=== PATIENT | female | born 1980 | race Caucasian/White ===

== ENCOUNTER 2016-05-08 09:41 | Observation (INO) | payer OTHER ==
[2016-05-02 15:47] LABS: BASOPHILS % (AUTO) 0.3 % (0.0-2.0); EOSINOPHILS % (AUTO) 0.9 % (1.0-6.0); HEMATOCRIT 41.8 % (36-46); HEMOGLOBIN 14.1 g/dL (12.0-16.0); LYMPHOCYTES # (AUTO) 1.3 K/uL (1.0-4.8); LYMPHOCYTES % (AUTO) 21.8 % (22.0-44.0); MEAN CORPUSCULAR HGB CONC 33.8 G/dL (31.0-37.0); MEAN CORPUSCULAR VOLUME 89 fL (80-100); MONOCYTES # (AUTO) 0.6 K/uL (0.1-1.0); MONOCYTES % (AUTO) 10.7 % (2.0-9.0); NEUTROPHILS # (AUTO) 3.8 K/uL (1.8-7.7); NEUTROPHILS % (AUTO) 66.3 % (40.0-70.0); PLATELET COUNT (AUTO) 177 K/uL (150-450); RED BLOOD CELL COUNT(AUTO) 4.72 MIL/uL (4.00-5.20); RED CELL DISTRIBUTION WIDTH 12.7 % (11.5-14.5); WHITE BLOOD COUNT (AUTO) 5.8 K/uL (4.5-11.0)
[2016-05-02 15:49] LABS: ANION GAP 5 mmol/L (8-16); CALCIUM, TOTAL 9.3 mg/dL (8.8-10.5); CARBON DIOXIDE 32 mmol/L (22-29); CHLORIDE 100 mmol/L (98-107); CREATININE 0.84 mg/dL (0.60-1.30); GLOMERULAR FILTR. RATE CALC > 60 mL/min (>60); POTASSIUM 4.2 mmol/L (3.5-5.1); SODIUM SERUM 137 mmol/L (136-145); UREA NITROGEN, BLOOD 12 mg/dL (7-18)
[2016-05-02 15:56] LABS: ALANINE AMINOTRANSFERASE 28 U/L (12-78); ALBUMIN 3.8 g/dL (3.4-5.0); ASPARTATE AMINOTRANSFERASE 18 U/L (15-37); BILIRUBIN,TOTAL 0.6 mg/dL (0.1-1.0); TOTAL PROTEIN, SERUM 7.3 g/dL (6.4-8.2)
[2016-05-02 16:10] LABS: PROTHROMBIN TIME 10.6 SEC (9.4-11.6)
[~2016-05-08] VITALS: Ht 167.6 cm; Wt 62.7 kg
[~2016-05-08 09:41] MED LIST: CeFAZolin 2 GM/DEXTROSE 50 ML IV ONE; DEXAMETHASONE SOD PHOS 4 MG/ML VIAL IVP ONE; FentaNYL CITRATE-PF 100 MCG/2 ML VIAL IVP ONE; LIDOCAINE HCL/PF 2% 5 ML VIAL IM ONE; MIDAZOLAM HCL 2 MG/2 ML VIAL IVP ONE; ONDANSETRON HCL 4 MG/2 ML VIAL IVP ONE; PROPOFOL 1% 20 ML VIAL IVP ONE; RINGERS SOLUTION,LACTATED 1,000 ML IV ONE; SUCCINYLCHOLINE CHLORIDE 20 MG/ML 10 ML VIAL IVP ONE
[2016-05-08] MEDS ORDERED: RINGERS SOLUTION,LACTATED 1,000 ML IV ONE (10:30)
[2016-05-08] MEDS ORDERED: CeFAZolin 2 GM/DEXTROSE 50 ML IV ONE (12:00)
[2016-05-08] MEDS ORDERED: ACETAMINOPHEN 1000 MG/ISO-OSM 100 ML IV ONE ×2 (12:35→12:45)
[2016-05-08] MEDS ORDERED: DiphenhydrAMINE HCL 50 MG/ML VIAL IVP PRN (12:45)
[2016-05-08] MEDS ORDERED: MAG HYDROX/AL HYDROX/SIMETH 30 ML SUSP UDCUP PO PRN (12:45)
[2016-05-08] MEDS ORDERED: ZOLPIDEM TARTRATE 10 MG TABLET PO PRN (12:45)
[2016-05-08] MEDS ORDERED: ONDANSETRON HCL 4 MG/2 ML VIAL IVP PRN ×2 (12:45→13:30)
[2016-05-08] MEDS ORDERED: PROMETHAZINE HCL 25 MG/ML VIAL IM PRN (13:30)
[2016-05-08] MEDS ORDERED: MEPERIDINE-PF 25 MG/ML SYRINGE IVP PRN (13:30)
[2016-05-08] MEDS ORDERED: HYDROmorphone 2 MG/ML SYRINGE IVP PRN (13:30)
[2016-05-08] MEDS ORDERED: FentaNYL CITRATE-PF 100 MCG/2 ML VIAL IVP PRN (13:30)
[2016-05-08] MEDS ORDERED: ZOLPIDEM TARTRATE 5 MG TABLET PO PRN (13:30)
[2016-05-08] MEDS ORDERED: HYDROmorphone 2 MG/ML SYRINGE ONE (14:21)
[2016-05-08 15:55] VITALS: BP 146/90
[2016-05-08] MEDS ORDERED: INFLUENZA VIRUS VACCINE QVS 2016-17 (3YR+)/PF 60 MCG/0.5 ML SYRINGE IM ONE (16:30)
[2016-05-08] MEDS: ACETAMINOPHEN 1000 MG/ISO-OSM 100 ML IV SCH (18:20)
[2016-05-08] MEDS: CYCLOBENZAPRINE HCL 10 MG TABLET PO PRN (18:34)
[2016-05-08 19:44] VITALS: BP 129/79
[2016-05-08] MEDS: OXYGEN THERAPY IH SCH (20:00)
[2016-05-08] MEDS: DOCUSATE SODIUM 100 MG CAPSULE PO SCH (20:18)
[2016-05-09] MEDS: ACETAMINOPHEN 1000 MG/ISO-OSM 100 ML IV SCH ×2 (00:01→06:21)
[2016-05-09 00:11] VITALS: BP 133/81
[2016-05-09 06:00] VITALS: BP 132/81
[2016-05-09] MEDS: HYDROmorphone 2 MG/ML SYRINGE IVP PRN ×3 (06:22→11:41)
[2016-05-09] MEDS: OXYGEN THERAPY IH SCH (08:00)
[2016-05-09] MEDS: DOCUSATE SODIUM 100 MG CAPSULE PO SCH (08:07)
[2016-05-09] MEDS: CYCLOBENZAPRINE HCL 10 MG TABLET PO PRN (08:07)
[2016-05-09 08:25] VITALS: BP 126/77
[2016-05-09 11:35] VITALS: BP 130/75
[2016-05-09] MEDS ORDERED: OxyCODONE HCL/ACETAMINOPHEN 10-325 MG TABLET PO PRN (18:00)
== END 2016-05-09 12:45 | disposition home or self-care (01) ==
LOC: INTOOBSV 09:41 → 4E 09:41 → UNDODISOB 05-09 12:45
PROVIDERS: ADMIT Hospitalist; ATTEND Orthopaedic Surgery Orthopaedic Surgery of the Spine
DX: M50.222 Other cervical disc displacement at C5-C6 level (principal); M54.12 Radiculopathy, cervical region
CPT/HCPCS: 22554; 36415; 80053; 84703; 85025; 85610; 85730; 87081; 96374; 96375; 96376; 97161; 97165; C1713; G0238; G0378 ×2; J0131 ×2; J0330; J0690 ×2; J1100; J1170 ×2; J2250; J2405; J2704; J3010; J3490; J7120